=== PATIENT | female | born 1950 | race Caucasian/White ===

== ENCOUNTER → 2016-08-20 | Outpatient (CLI) | payer BC ==
[~2016-08-20] MED LIST: ALLERGY RELIEF10 M1 PO; BENADRYL25 M2 PO; CLARITIN 1010 MG/TAB PO; COLACE 100100 MG/CAP PO; COZAAR 25MG25 MG/TAB PO; DULCOLAX PO; FERROUS SU325 MG/TAB PO; FLEXERIL5 MG PO; FOLIC ACID0.4 MG PO; LORTAB 5/500 501 TAB PO; LOVENOX 4040 MG/0.4 SC; NAPROSYN500 MG PO; NORCO 325 MG-7.1 TAB PO; PHARMASSURE MA500 MG PO; PREDNISONE20 MG PO; PROZAC 20MG20 MG PO; QVAR0.08 MG/AC IH; RT MAXAIR INH25.6 GM INH; VITAMIN C500 MG PO; VITAMIN D1000 IU PO; XOPENEX 1.1.25 MG/3 IH
== END ==
LOC: MC.RAD 07:40
DX: Z12.31 Encounter for screening mammogram for malignant neoplasm of breast (principal)

== ENCOUNTER → 2017-09-25 | Outpatient (CLI) | payer MEDICARE, BC | LOC: MC.RAD 07:51 | DX: Z12.31 Encounter for screening mammogram for malignant neoplasm of breast (principal); N63.20 Unspecified lump in the left breast, unspecified quadrant ==

== ENCOUNTER → 2017-09-30 | Outpatient (CLI) | payer MEDICARE, BC | LOC: MC.RAD 12:55 | DX: N60.02 Solitary cyst of left breast (principal); N63.20 Unspecified lump in the left breast, unspecified quadrant ==

== ENCOUNTER 2017-12-12 09:23 | Day surgery (SDC) | payer MEDICARE, BC ==
[~2017-12-12] VITALS: Ht 165.1 cm; Wt 87.8 kg
[2017-12-12 10:35] VITALS: BP 136/83; PULSE 66; TEMP 98.1
[2017-12-12] MEDS ORDERED: PROBIOTIC FORMU1 CAP PO (10:45)
[2017-12-12] MEDS ORDERED: CYANOCOBAL1000 MCG/1 (10:46)
[2017-12-12] MEDS ORDERED: PRIL40 PO (10:46)
[2017-12-12] MEDS ORDERED: ULTRAM ER100 MG PO (10:48)
[2017-12-12] MEDS ORDERED: FIORICET 325 MG1 TA1 PO (10:48)
[2017-12-12 12:19] VITALS: BP 147/86; PULSE 69; TEMP 97.9
[2017-12-12 12:30] VITALS: BP 148/76; PULSE 54
[2017-12-12 12:45] VITALS: BP 156/79; PULSE 57
== END 2017-12-12 13:30 | disposition home or self-care (01) ==
LOC: SDCO 09:23
DX: K21.0 Gastro-esophageal reflux disease with esophagitis (principal); K22.2 Esophageal obstruction; K44.9 Diaphragmatic hernia without obstruction or gangrene; K29.30 Chronic superficial gastritis without bleeding; J45.909 Unspecified asthma, uncomplicated; I10 Essential (primary) hypertension; Z88.6 Allergy status to analgesic agent; Z88.1 Allergy status to other antibiotic agents; Z88.5 Allergy status to narcotic agent; Z88.0 Allergy status to penicillin; Z88.8 Allergy status to other drugs, medicaments and biological substances; Z90.49 Acquired absence of other specified parts of digestive tract; Z90.710 Acquired absence of both cervix and uterus
CPT/HCPCS: C1726; J2250; J3010; J7030

== ENCOUNTER → 2018-04-02 | Outpatient (CLI) | payer MEDICARE, BC ==
[~2018-04-02] MED LIST changes: +CYANOCOBAL1000 MCG/1; +FIORICET 325 MG1 TA1 PO; +PRIL40 PO; +PROBIOTIC FORMU1 CAP PO; +ULTRAM ER100 MG PO
== END ==
LOC: MC.RAD 07:27
DX: N63.20 Unspecified lump in the left breast, unspecified quadrant (principal)

== ENCOUNTER → 2018-10-26 | Outpatient (CLI) | payer MEDICARE, BC | LOC: MC.RAD 06:54 | DX: Z12.31 Encounter for screening mammogram for malignant neoplasm of breast (principal); N63.20 Unspecified lump in the left breast, unspecified quadrant ==

== ENCOUNTER → 2018-10-30 | Outpatient (CLI) | payer MEDICARE, BC | LOC: MC.RAD 07:29 | DX: N60.02 Solitary cyst of left breast (principal) ==

== ENCOUNTER → 2019-05-03 | Outpatient (CLI) | payer MEDICARE, BC | LOC: MC.RAD 07:54 | DX: N63.20 Unspecified lump in the left breast, unspecified quadrant (principal) | CPT/HCPCS: G0279 ==

== ENCOUNTER → 2021-02-16 | Outpatient (CLI) | payer MEDICARE, BC | LOC: MC.RAD 07:00 | DX: Z12.31 Encounter for screening mammogram for malignant neoplasm of breast (principal) ==

== ENCOUNTER → 2022-04-05 | Outpatient (CLI) | payer MEDICARE, BC | LOC: COL.RAD 08:48 | DX: M25.552 Pain in left hip (principal) | CPT/HCPCS: Q9967 ==

== ENCOUNTER → 2022-06-11 | Outpatient (CLI) | payer MEDICARE, BC | LOC: MC.RAD 13:05 | DX: Z12.31 Encounter for screening mammogram for malignant neoplasm of breast (principal); N64.89 Other specified disorders of breast ==

== ENCOUNTER → 2022-06-17 | Outpatient (CLI) | payer MEDICARE, BC | LOC: MC.RAD 13:29 | DX: N63.25 Unspecified lump in the left breast, overlapping quadrants (principal) ==

== ENCOUNTER → 2023-07-11 | Outpatient (CLI) | payer MEDICARE, BC ==
[~2023-07-11] MED LIST changes: +BYSTOLIC10 MG PO; +DYAZIDE 25 MG-31 CAP PO; +FLEXERIL 1010 MG/TAB PO; +MAGNESIUM200 MG PO; +MOBIC15 MG PO; +NEURONTIN300 MG/CAP PO; +NORCO 325 MG-51 TAB PO; -PHARMASSURE MA500 MG PO; +PROZAC 10MG10 MG PO
== END ==
LOC: COL.RAD 08:37
DX: M25.552 Pain in left hip (principal)